=== PATIENT | male | born 1995 | race Caucasian/White ===

== ENCOUNTER 2019-09-14 16:38 | Emergency (ER) | payer OTHER ==
[~2019-09-14] VITALS: Ht 177.8 cm; Wt 90.3 kg
[2019-09-14 16:50] VITALS: Ht 177.8 cm; Wt 90.3 kg
[2019-09-14 21:40] VITALS: BP 106/61
== END 2019-09-14 21:40 | disposition home or self-care (01) ==
LOC: ED 16:38
DX: S93.401A Sprain of unspecified ligament of right ankle, initial encounter (principal); V29.9XXA Motorcycle rider (driver) (passenger) injured in unspecified traffic accident, initial encounter; Y93.55 Activity, bike riding; Y92.413 State road as the place of occurrence of the external cause; Y99.8 Other external cause status
CPT/HCPCS: J1885; J2270

== ENCOUNTER 2019-09-16 16:17 | Emergency (ER) | payer OTHER ==
[~2019-09-16] VITALS: Ht 177.8 cm; Wt 86.2 kg
[2019-09-16 16:24] VITALS: Ht 177.8 cm; Wt 86.2 kg
[2019-09-17 01:14] VITALS: BP 115/77
== END 2019-09-17 01:14 | disposition home or self-care (01) ==
LOC: ED 16:17
DX: S82.101A Unspecified fracture of upper end of right tibia, initial encounter for closed fracture (principal); V29.49XA Motorcycle driver injured in collision with other motor vehicles in traffic accident, initial encounter; Y93.I9 Activity, other involving external motion; Y92.413 State road as the place of occurrence of the external cause; Y99.8 Other external cause status
CPT/HCPCS: J3010